=== PATIENT | female | born 1965 | race Caucasian/White ===

== ENCOUNTER 2018-08-04 10:23 | Outpatient (CLI) | payer BC | END 2018-08-04 10:24 | disposition home or self-care (01) | LOC: DTY/OP 10:23 | PROVIDERS: ATTEND Surgery | DX: E66.01 Morbid (severe) obesity due to excess calories (principal); Z98.84 Bariatric surgery status | CPT/HCPCS: 97802 ==

== ENCOUNTER 2018-11-02 08:58 | Inpatient (IN) | payer BC ==
[2018-11-02] MEDS ORDERED: Heparin 5,000 UNITS/ML VIAL ONE (11:01)
[2018-11-02] MEDS ORDERED: Glycopyrrolate 0.2 MG/ML 5 ML SYRINGE ONE (11:33)
[2018-11-02] MEDS ORDERED: Metoclopramide HCl 10 MG/2 ML VIAL ONE (11:33)
[2018-11-02] MEDS ORDERED: Lidocaine 1% PF 5 ML VIAL ONE (11:33)
[2018-11-02] MEDS ORDERED: Dexamethasone 20 MG/5 ML VIAL ONE (11:33)
[2018-11-02] MEDS ORDERED: Ondansetron PF 4 MG/2 ML Vial ONE (11:33)
[2018-11-02] MEDS ORDERED: Ketorolac Tromethamine 30 MG/ML VIAL ONE (11:33)
[2018-11-02] MEDS ORDERED: Rocuronium Bromide 10 MG/ML (10ML VIAL) ONE (11:33)
[2018-11-02] MEDS ORDERED: PROPOFOL 200 MG/20 ML VIAL ONE (11:33)
[2018-11-02] MEDS ORDERED: ePHEDrine 50 MG/ML VIAL ONE (11:33)
[2018-11-02] MEDS ORDERED: Bupivacaine/Epinephrine 0.25% 30 ML VIAL ONE (11:40)
[2018-11-02] MEDS ORDERED: Midazolam HCl 2 mg/2 ml Vial ONE (11:44)
[2018-11-02] MEDS ORDERED: Fentanyl 250 MCG/5 ML VIAL ONE (11:44)
[2018-11-02] MEDS ORDERED: Promethazine HCl 25 MG/ML VIAL SLOW IVP PRN (13:46)
[2018-11-02] MEDS ORDERED: Promethazine HCl 25 MG/ML VIAL IM PRN ×3 (13:46→15:40)
[2018-11-02] MEDS ORDERED: Ondansetron HCl/PF 4 MG/2 ML Vial IVP PRN (13:46)
[2018-11-02] MEDS ORDERED: Fentanyl 100 MCG/2 ML VIAL ONE ×2 (14:19→14:49)
[2018-11-02] MEDS ORDERED: diphenhydrAMINE 25 MG CAP PO PRN (14:38)
[2018-11-02] MEDS ORDERED: diphenhydrAMINE 50 MG/ML VIAL IM PRN (14:38)
[2018-11-02] MEDS ORDERED: diphenhydrAMINE 50 MG/ML VIAL IVP PRN ×2 (14:38→15:40)
[2018-11-02] MEDS ORDERED: Naloxone HCl 0.4 mg/ml Vial IV PRN (14:38)
[2018-11-02] MEDS ORDERED: Zolpidem Tartrate 5 MG TAB PO PRN (14:38)
[2018-11-02] MEDS ORDERED: HYDROmorphone 10 mg/100 ml CADD IVPB PRN (14:38)
[2018-11-02] MEDS ORDERED: Ondansetron PF 4 MG/2 ML Vial IVP PRN ×2 (14:38→15:40)
[2018-11-02] MEDS ORDERED: Communication Order-Pharmacy FS SCH (14:45)
[2018-11-02] MEDS ORDERED: Hydrocodone-Acetamin 15 ML UDCUP PO PRN (15:40)
[2018-11-02] MEDS ORDERED: hydrALAZINE 20 MG/ML VIAL SLOW IVP PRN (15:40)
[2018-11-02] MEDS ORDERED: Dextrose 50% Abboject 50 ML SYRINGE SLOW IVP PRN (15:40)
[2018-11-02] MEDS ORDERED: Dextrose 5% in Water 1,000 ML IV PRN (15:40)
[2018-11-02] MEDS: D5 1/2 NS w/20 mEq KCL 1,000 ML IV SCH (16:42)
--- NOTE | 2018-11-02 20:48 | OP ---
DATE OF PROCEDURE: 11/02/2018 PREOPERATIVE DIAGNOSES: 1. Dysphagia with mild prolapse seen on barium swallow for lap band. 2. Morbid obesity with a body mass index of 53. 3. Hypertension. 4. Dyslipidemia. POSTOPERATIVE DIAGNOSES: 1. Dysphagia with mild prolapse seen on barium swallow for lap band. 2. Morbid obesity with a body mass index of 53. 3. Hypertension. 4. Dyslipidemia. PROCEDURES PERFORMED: 1. Laparoscopic removal of lap band and subcutaneous port. 2. Laparoscopic sleeve gastrectomy with Powell staple-line reinforcements and 38-J[place] bougie. 3. Esophagogastroduodenoscopy. ANESTHESIA: General. ESTIMATED BLOOD LOSS: Minimal. COMPLICATIONS: None. SPECIMEN: Stomach, lap band and port removed and recreated on back table to reveal no missing elements. INDICATIONS FOR PROCEDURE: The patient is a 52-year-old female with chronic dysphagia, who was found to have evidence of prolapse on a barium swallow. With her morbid obesity, she was thought to be a good candidate for conversion to sleeve gastrectomy. Risks, benefits, and alternatives were discussed and she gave consent. TECHNIQUE: The patient was taken to the operating room and laid supine on the operating room table. After general anesthetic was obtained, bilateral arms and legs were double strapped to bariatric table. OG tube was used to decompress the stomach. Left subcostal 5 mm Optiview trocar was placed in the usual fashion. High flow pneumoperitoneum was obtained. Left upper abdominal 12 mm ports as well as right subcostal 5 mm port were placed in direct visualization. A 5 mm incision was made at the xiphoid and Isidoro was used to raise the liver off the GE junction. Short gastric was taken down to a distance of 5 cm proximal to the pylorus all the way to the left damari of the diaphragm. Left damari, angle of His, and posterior fundus were all completely dissected. The cautery was used to incise the scar tissue over the lap band on the medial side of the stomach. The lap band was able to be unbuckled. It was able to be pulled and removed. The tubing was cut as it exits the abdomen. The lap band was placed up underneath the left-sided 12 mm trocar site. The short gastrics were taken down to a distance of 6 cm proximal to the pylorus. The anterior wrap over the top of the band was taken down carefully using a LigaSure. The OG tube was removed and a 38-bougie was brought in with its tip left in the antrum of the stomach. Multiple loads of the staple line were used to perform the sleeve. The first was fired up at a distance of 6 cm proximal to the pylorus angled up towards the incisura. Multiple loads were then fired up along the incisura and the stomach was completely transected at the angle of His. The stomach was removed from the left abdominal incision. This fascial defect was closed using GraNee needle and 0 Vicryl tie. All port sites were infiltrated using local anesthetic. The lap band was removed from the left abdominal incision before fascial closure as well. EGD scope was passed through esophagus and stomach to the level of duodenum without obstruction. There was no stricture at the incisura. There was no air leakage or bleeding on the staple line. The EGD scope was used to decompress the stomach. It was pulled and removed. Isidoro retractor was removed under direct visualization without bleeding. All port sites were infiltrated using local anesthetic and removed under direct visualization without bleeding. Pneumoperitoneum was let down. Vicryl was used to close the fascial defect from the left abdominal incisions. All incisions were irrigated and closed using 4-0 Monocryl and Dermabond. The patient was sent to Recovery in stable condition. All instrument counts, needle counts, and lap counts were correct. Job ID: [id number]
[2018-11-02] MEDS ORDERED: Enoxaparin Sodium 40 MG/0.4 ML SYRINGE SC SCH (21:00)
[2018-11-03] MEDS: D5 1/2 NS w/20 mEq KCL 1,000 ML IV SCH ×2 (00:02→09:32)
[2018-11-03 05:43] LABS: #Lymphocytes 1.2 thou/uL (1.20-3.40); #Monocytes 0.6 thou/uL (0.11-0.59); #Neutrophils 9.4 thou/uL (1.40-6.50); %Basophils 0.2 % (0.0-1.0); %Eosinophils 0.1 % (0.0-10.0); %Lymphocytes 10.7 % (21.0-51.0); %Monocytes 5.7 % (0.0-10.0); %Neutrophils 83.3 % (42.0-75.0); Mean Corpuscular HGB CONC 33.1 g/dL (32.0-36.0); Mean Corpuscular Hemoglobin 30.2 pg (27.0-31.0); Mean Corpuscular Volume 91.3 fL (78.0-98.0); Platelet Count 269 thou/uL (130-400); RBC Distribution Width 12.3 % (11.5-14.5); Red Blood Cell (RBC) Count 3.95 mill/uL (4.20-5.40); White Blood Cell (WBC) Count 11.2 thou/uL (4.8-10.8)
[2018-11-03 06:02] LABS: Anion Gap 12 mmol/L (10-20); BUN (Urea Nitrogen) 13 mg/dL (9.8-20.1); Calc. Creatinine Clearance 0 mL/min (70-130); Calcium 8.8 mg/dL (7.8-10.44); Carbon Dioxide 24 mmol/L (22-29); Chloride 104 mmol/L (98-107); Estimated GFR-MDRD 63; Glucose 146 mg/dL (70-105); Potassium 4.4 mmol/L (3.5-5.1); Sodium 136 mmol/L (136-145)
[2018-11-03] MEDS ORDERED: Lisinopril 20 MG TAB PO SCH (09:00)
[2018-11-03] MEDS ORDERED: Pantoprazole 40 MG VIAL IVP SCH (09:00)
--- NOTE | 2018-11-03 11:23 | DIS ---
DATE OF ADMISSION: 11/02/2018 DATE OF DISCHARGE: 11/03/2018 ADMITTING DIAGNOSES: 1. Morbid obesity. 2. Prolapsed lap band. DISCHARGE DIAGNOSES: 1. Morbid obesity. 2. Prolapsed lap band. PROCEDURES: Laparoscopic sleeve gastrectomy and removal of laparoscopic gastric band and port by Dr. Arizmendi without complication. CONDITION ON DISCHARGE: Improved. HOSPITAL COURSE: On postop day 1, the patient is doing well. She is tolerating liquids without difficulty. No nausea or vomiting. She is ambulatory and her pain is controlled. She is discharged to home. Lortab elixir, Zofran, and pantoprazole are already sent over to her pharmacy. She will follow up with me in 2 weeks. Job ID: [id number]
[2018-11-03 12:23] VITALS: TEMP 98.6
[2018-11-03 12:51] VITALS: BP 133/69
== END 2018-11-03 14:08 | disposition home or self-care (01) | DRG 620 ==
LOC: SURG A 10:19 → SURG B 14:28 → EDSTATUS 16:27
PROVIDERS: ADMIT Surgery; ATTEND Surgery
PROC: 0DB64Z3 Excision of Stomach, Percutaneous Endoscopic Approach, Vertical (ICD-10-PCS; principal; 2018-11-02)
PROC: 0DP64CZ Removal of Extraluminal Device from Stomach, Percutaneous Endoscopic Approach (ICD-10-PCS; 2018-11-02)
PROC: 0DJ08ZZ Inspection of Upper Intestinal Tract, Via Natural or Artificial Opening Endoscopic (ICD-10-PCS; 2018-11-02)
DX: E66.01 Morbid (severe) obesity due to excess calories (principal); K95.09 Other complications of gastric band procedure; R13.10 Dysphagia, unspecified; I10 Essential (primary) hypertension; E78.5 Hyperlipidemia, unspecified; Z68.43 Body mass index [BMI] 50.0-59.9, adult
CPT/HCPCS: 36415; 80048; 85025; 88307; 88312; 94760; C9113; J0690; J1100; J1644; J1650; J1885; J2001; J2250; J2405; J2704; J2765; J3010; J3490